=== PATIENT | male | born 1950 | race Caucasian/White ===

== ENCOUNTER → 2020-04-10 | Outpatient (CLI) | payer MEDICARE, BC ==
[2020-04-10 16:39] LABS: PLATELET COUNT, AUTOMATED 221 10^3/uL (150-450)
[2020-04-10 16:55] LABS: INR 0.99; PROTHROMBIN TIME 12.8 SECONDS (11.8-14.0)
[2020-04-10 16:56] LABS: PARTIAL THROMBOPLASTIN TIME 27.4 SECONDS (25.0-38.4)
== END ==
LOC: M WUC 11:09
PROVIDERS: ATTEND Physician Assistant
DX: Z01.812 Encounter for preprocedural laboratory examination (principal); M47.817 Spondylosis without myelopathy or radiculopathy, lumbosacral region

== ENCOUNTER → 2020-04-11 | Outpatient (CLI) | payer MEDICARE, BC | LOC: M LABSMTC 10:18 | PROVIDERS: ATTEND Physician Assistant | DX: Z03.818 Encounter for observation for suspected exposure to other biological agents ruled out (principal); Z11.59 Encounter for screening for other viral diseases ==

== ENCOUNTER → 2020-07-02 | Outpatient (CLI) | payer MEDICARE, BC ==
[~2020-07-02] MED LIST: AMBI5TAB PO; IBUP-1022 PO; LIDO4CRE4 EX; LISI-538 PO; MAGN400T2 PO; OMEP-218 PO; PERC5TAB12 PO; VALA1TAB5 PO; XARE10TA PO
== END ==
LOC: M LABSMTC 10:10
PROVIDERS: ATTEND Anesthesiology
DX: Z03.818 Encounter for observation for suspected exposure to other biological agents ruled out (principal); Z11.59 Encounter for screening for other viral diseases
CPT/HCPCS: C9803; U0003

== ENCOUNTER 2020-07-07 09:54 | Inpatient (IN) | payer MEDICARE, BC ==
[~2020-07-07] VITALS: Ht 167.6 cm; Wt 73.9 kg
[~2020-07-07 09:54] MED LIST changes: +BUPIVACAINE HCL 0.25% 10ML VIAL As Ordered ONE; +BUPIVACAINE LIPOSOME/PF 1.3% 20ML VIAL (13.3MG/ML)(EXPAREL)(C9290 PER1MG) As Ordered ONE; +EPINEPHrine INJ 1 MG/ML 1ML AMP As Ordered ONE; -PERC5TAB12 PO; +TRANEXAMIC ACID 100 MG/ML 10ML VIAL As Ordered ONE; -XARE10TA PO; +ceFAZolin 1GM VIAL (J0690 PER 500MG) As Ordered ONE; +lisinopriL 20 MG TAB PO SCH
[2020-07-07] MEDS ORDERED: ceFAZolin 2 GM/D5W 50 ML IV BAG (J0690 PER 500MG) As Ordered ONE (10:50)
[2020-07-07] MEDS ORDERED: ACETAMINOPHEN 500 MG TAB As Ordered ONE (10:50)
[2020-07-07] MEDS ORDERED: ceFAZolin SOD 2 GM in IV 1 EA IV ONE (11:15)
[2020-07-07] MEDS ORDERED: ACETAMINOPHEN 500 MG TAB PO ONE (11:15)
[2020-07-07] MEDS ORDERED: LR 1,000 ML IV ONE (11:15)
[2020-07-07] MEDS ORDERED: fentaNYL 100 MCG/2 ML INJECTION (J3010) As Ordered ONE ×2 (11:37→13:03)
[2020-07-07] MEDS ORDERED: MIDAZOLAM INJ 2MG/2ML VIAL (J2250 PER 1MG) As Ordered ONE ×2 (11:37→13:03)
[2020-07-07 11:44] LABS: INR 0.94; PROTHROMBIN TIME 12.8 SECONDS (11.8-14.0)
[2020-07-07] MEDS: fentaNYL 100 MCG/2 ML INJECTION (J3010) IV SCH ×2 (11:59→12:05)
[2020-07-07] MEDS: MIDAZOLAM INJ 2MG/2ML VIAL (J2250 PER 1MG) IV SCH ×2 (11:59→12:02)
[2020-07-07] MEDS ORDERED: ePHEDrine SULFATE 25 MG/5 ML(5MG/ML) SYRINGE As Ordered ONE (13:03)
[2020-07-07] MEDS ORDERED: propofoL 500 MG/50 ML VIAL As Ordered ONE (13:03)
[2020-07-07] MEDS ORDERED: propofoL 200 MG/20 ML VIAL As Ordered ONE (13:11)
[2020-07-07] MEDS ORDERED: ONDANSETRON 4MG/2ML VIAL As Ordered ONE (14:07)
[2020-07-07] MEDS ORDERED: LR 1,000 ML IV SCH ×2 (14:45→15:45)
[2020-07-07] MEDS ORDERED: fentaNYL 100 MCG/2 ML INJECTION (J3010) IV PRN (14:45)
[2020-07-07] MEDS ORDERED: ONDANSETRON 4MG/2ML VIAL IV PRN ×2 (14:45→15:45)
[2020-07-07] MEDS ORDERED: METOCLOPRAMIDE INJ 10MG/2ML VIAL (J2765 PER 1) IV PRN (14:45)
[2020-07-07] MEDS ORDERED: MEPERIDINE INJ 25 MG/ML VIAL (J2175) IV PRN (14:45)
[2020-07-07] MEDS ORDERED: ACETAMINOPHEN TAB 650MG DOSE (2X325MG) PO PRN (15:45)
[2020-07-07] MEDS ORDERED: MORPHINE 2 MG/ML 1ML VIAL (J2270) IV PRN (15:45)
[2020-07-07] MEDS ORDERED: PERCOCET 5MG/325MG TAB PO PRN ×3 (15:45→23:45)
[2020-07-07] MEDS ORDERED: oxyCODONE 5MG TAB As Ordered ONE ×2 (16:05→16:36)
[2020-07-07] MEDS: oxyCODONE 5MG TAB PO PRN ×2 (16:10→16:40)
[2020-07-07 18:00] VITALS: BP 178/84
[2020-07-07 18:30] VITALS: BP 174/94
[2020-07-07] MEDS ORDERED: zolPIDEM TARTRATE 5 MG TAB PO PRN (18:45)
[2020-07-07] MEDS ORDERED: amLODIPine 5 MG TAB PO ONE (19:00)
[2020-07-07] MEDS: OMEPRAZOLE 20 MG CAP PO SCH (19:07)
--- NOTE | 2020-07-07 19:15 | CR.PDOC ---
General Date of Consultation: Jul 07, 2020 Consultation REASON FOR CONSULTATION/CHIEF COMPLAINT: Medical comanagement HISTORY OF PRESENT ILLNESS: This is a 70 year old male with PMH of Hypertension HLD, GERD, gout was admitted for elective left total knee replacement for advanced OA not responding to medical management. Hospitalist consulted for medical comanagement. Complaining of left knee aching throbbing pain about 6/10 in intensity, no radiation. ALLERGIES: Please see below. HOME MEDICATIONS: Please see below. PAST MEDICAL HISTORY: Hypertension HLD Gout GERD Hiatal hernia Liu's esophagus colonic polyps. OA PAST SURGICAL HISTORY: colonoscopies FAMILY HISTORY: Father: Colon cancer Siblings: Brother colon cancer SOCIAL HISTORY: Tobacco use: Negative ETOH: Occasionally Illicit drug use: none REVIEW OF SYSTEMS: 11 point review of system is negative except as mentioned in HPI. PHYSICAL EXAMINATION: VITAL SIGNS: Please see below. GENERAL APPEARANCE: awake, alert oriented x 3, laying in bed in no acute distress. HEENT: Nc/AT, MMM, Anicteric eyes. RESPIRATORY: Clear to auscultation CARDIOVASCULAR: S1, S2 regular no rub/ murmur/ gallop ABDOMEN: soft , nontender, bowel sounds positive EXTREMITIES: No edema NEUROLOGICAL: No focal neurodeficits LABORATORY DATA: Please see below. ASSESSMENT/PLAN: This is a 70 year old male with PMH of Hypertension HLD, GERD, gout was admitted for elective left total knee replacement for advanced OA not responding to medical management. Hospitalist consulted for medical comanagement. S/P Left total knee arthroplasty pain control and dvt prophylaxis as per ortho Hypertension will hold lisinopril today start from tomorrow with hold parameters. will give amlodipine if needed for BP control. Patient already got lisinopril before I could see the patient. If basic OK will restart lisinopril form tomorrow. HLD not on any meds. Gout allopurinol GERD/Hiatal Hernia/Baretts esophagus PPI Vital Signs/I&O Vital Signs Date Time Temp Pulse Resp B/P (MAP) Pulse Ox O2 Delivery O2 Flow Rate FiO2 07/07/20 12:15 65 16 130/61 (84) 96 Nasal Cannula 2 07/07/20 11:20 98 Laboratory Data Labs 24H Laboratory Tests 2 07/07/20 11:12: Erythrocyte Sedimentation Rate 13, Prothrombin Time 12.8, Prothromb Time International Ratio 0.94 Allergies Coded Allergies: Sulfa (Sulfonamide Antibiotics) (Verified Allergy, Intermediate, HIVES, 07/04/20) Home Medications Scheduled Lidocaine (Lidocaine) 15 Gm Cream..g., 5 % EX ASDIRECTED, (Reported) Lisinopril (Lisinopril) 20 Mg Tablet, 20 MG PO DAILY, (Reported) Magnesium Oxide (Magnesium Oxide) 400 Mg Tablet, 400 MG PO DAILY, (Reported) Omeprazole (Omeprazole) 20 Mg Capsule.dr, 20 MG PO DAILY, (Reported) Valacyclovir HCl (Valacyclovir) 1,000 Mg Tablet, 1 GM PO ASDIRECTED, (Reported) Zolpidem Tartrate (Ambien) 5 Mg Tablet, 5 MG PO QHS, (Reported) Scheduled PRN Ibuprofen (Ibuprofen) 600 Mg Tablet, 600 MG PO Q6H PRN for PAIN for 5 Days, #20 (Reported) IVONNE PRYOR MD Jul 07, 2020 13:50
[2020-07-07 19:30] VITALS: BP 147/60
[2020-07-07 20:30] VITALS: BP 170/80
[2020-07-07] MEDS: ceFAZolin SOD 2 GM in IV 1 EA IV SCH (20:45)
[2020-07-07] MEDS ORDERED: ASPIRIN 81 MG ENTERIC TAB PO SCH (21:00)
[2020-07-07 21:30] VITALS: BP 150/70
[2020-07-07 22:30] VITALS: BP 160/80
[2020-07-07] MEDS: PERCOCET 5MG/325MG TAB PO PRN (23:59)
[2020-07-08 04:30] VITALS: BP 140/65
[2020-07-08] MEDS: PERCOCET 5MG/325MG TAB PO PRN ×3 (04:35→13:30)
[2020-07-08] MEDS: ceFAZolin SOD 2 GM in IV 1 EA IV SCH ×2 (04:38→11:50)
[2020-07-08] MEDS ORDERED: XARE10TA PO (06:20)
[2020-07-08] MEDS ORDERED: PERC5TAB12 PO (06:20)
[2020-07-08 07:26] LABS: HEMATOCRIT 39.3 % (42.0-52.0); HEMOGLOBIN 13.1 g/dl (13.5-17.5); MEAN CORPUSCULAR HGB CONC 33.3 g/dl (32.0-36.5); MEAN CORPUSCULAR VOLUME 95.9 fl (80.0-96.0); PLATELET COUNT, AUTOMATED 224 10^3/uL (150-450); WHITE BLOOD COUNT 14.1 10^3/uL (4.0-10.0)
[2020-07-08 07:50] LABS: ALBUMIN 3.4 GM/DL (3.2-5.2); ALT/SGPT 27 U/L (12-78); BILIRUBIN,TOTAL 0.3 MG/DL (0.2-1.0); BLOOD UREA NITROGEN 12 MG/DL (7-18); CALCIUM LEVEL 8.8 MG/DL (8.8-10.2); CARBON DIOXIDE LEVEL 27 MEQ/L (21-32); CHLORIDE LEVEL 107 MEQ/L (98-107); CREATININE FOR GFR 0.91 MG/DL (0.70-1.30); GLOMERULAR FILTRATION RATE > 60.0 (>42); GLUCOSE, FASTING 167 MG/DL (70-100); POTASSIUM SERUM 4.2 MEQ/L (3.5-5.1); SODIUM LEVEL 140 MEQ/L (136-145)
[2020-07-08 08:45] VITALS: BP 142/78
[2020-07-08] MEDS: OMEPRAZOLE 20 MG CAP PO SCH (08:45)
[2020-07-08] MEDS ORDERED: lisinopriL 20 MG TAB PO SCH (09:00)
[2020-07-08] MEDS ORDERED: MIRALAX *UNIT DOSE* 17GM PACKET PO SCH (09:00)
[2020-07-08] MEDS ORDERED: MAGNESIUM OXIDE 400 MG TAB (MAG-OX) PO SCH (09:00)
[2020-07-08] MEDS ORDERED: MOM 30ML SUSPENSION UDC PO SCH (09:00)
[2020-07-08] MEDS ORDERED: EPINEPHrine INJ 1 MG/ML 1ML AMP ONE (11:06)
[2020-07-08] MEDS ORDERED: ROPIvacaine 0.5% 30ML INJECTION (J2795 PER 1MG) ONE (11:06)
[2020-07-08] MEDS ORDERED: dexameTHASONE 10MG/1ML VIAL PRES.FREE (J1100 PER 1MG) ONE (11:06)
--- NOTE | 2020-07-08 12:24 | IPNPDOC ---
Date Seen The patient was seen on 07/08/20. Progress Note SUBJECTIVE: Patient is doing well overnight, no acute events. Denies fevers, chills, n/v/d or chest pain. Hospitalist service following as consulted for BP management. OBJECTIVE PHYSICAL EXAMINATION: VITAL SIGNS: Please see below. GENERAL: NAD HEENT: PERRLA, EOMI CARDIOVASCULAR: RRR, normal S1, S2. RESPIRATORY: Lungs CTAB, no wheeze, no rales. Good inspiratory effort. ABDOMINAL: soft, non tender EXTREMITIES: L knee incision s/p replacement, clean, dry. ROM slightly limited by pain. Pulses 2+ BLE. No swelling. NEUROLOGICAL: no focal defecits noted PSYCHOLOGICAL: calm, pleasant DVT prophylaxis ordered?: Y ASSESSMENT AND PLAN: 70 yo M with a hx of HTN, HLD, GERD, Liu's Esophagus, Gout, admitted for elective L TKR for advanced OA, which was not responsive to medical management. Hospital service consulted for BP management. PROBLEMS: 1. S/p L total knee replacement: ortho service is meghan. Pain control and DVT ppx per ortho. Discussed with service [employer]PLOYMENT CONSULTANT. ASA 81 mg BID was DC by hospitalist service given hx of Liu's Esophagus and GERD. Recommendation to use alternate method of DVT ppx (non-NSAID) 2. HTN: BP 140/80. Normotensive for age group. Continue with lisinopril 20 mg daily on DC. Repeat BP at PCP follow up. 3. HLD: not taking any medication 4. Gout: c/w allopurinol 5. GERD/Liu's/Hiatal hernia: c/w PPI. Avoid NSAID. VS, I&O, 24H, Fishbone Vital Signs/I&O Vital Signs Date Time Temp Pulse Resp B/P (MAP) Pulse Ox O2 Delivery O2 Flow Rate FiO2 07/08/20 09:16 18 07/08/20 08:45 142/78 07/08/20 04:30 97.8 73 97 Room Air 07/07/20 16:40 2.0 I&O- Last 24 Hours up to 6 AM 07/08/20 06:00 Intake Total 1955 ml Output Total 470 ml Balance 1485 ml Laboratory Data 24H LABS Laboratory Tests 2 07/08/20 06:49: Nucleated Red Blood Cells % (auto) 0.0, Anion Gap 6L, Glomerular Filtration Rate > 60.0, Calcium Level 8.8, Total Bilirubin 0.3, Aspartate Amino Transf (AST/SGOT) 13, Alanine Aminotransferase (ALT/SGPT) 27, Alkaline Phosphatase 65, Total Protein 6.0L, Albumin 3.4, Albumin/Globulin Ratio 1.3 CBC/BMP Laboratory Tests 07/08/20 06:49 DAINA ADHIKARI MD Jul 08, 2020 12:24
[2020-07-08] MEDS ORDERED: amLODIPine 5 MG TAB PO SCH (21:00)
--- NOTE | 2020-07-30 10:36 | RO ---
DATE OF OPERATION: 07/07/2020 PREOPERATIVE DIAGNOSIS: Left knee varus tricompartmental degenerative arthritis. POSTOPERATIVE DIAGNOSIS: Left knee varus tricompartmental degenerative arthritis. PROCEDURE: Left total knee arthroplasty using a size 5 Attune cemented femoral component, cruciate retaining with a size 6 tibial tray and an 8 mm rotating platform polyethylene insert, and a 35 mm polyethylene button. All components were cemented. Prosthesis was made by [employer]. SURGEON: Brittany Elise MD NOTCHER: PEGGY Damico ANESTHESIA: Spinal with left femoral nerve block. COMPLICATIONS: None. ESTIMATED BLOOD LOSS: 20 mL. SPECIMENS: Joint surface. DESCRIPTION OF PROCEDURE: Antibiotics were given intravenously preoperatively. Successful left femoral nerve block and then a spinal anesthetic was induced. Then a tourniquet was placed to the left upper thigh and not inflated. Left lower extremity was carefully prepped and draped in the usual sterile fashion and after an appropriate timeout, the tourniquet was inflated, and then a longitudinal incision was made for an anteromedial arthrotomy approach to the knee. Bovie cautery was used to coagulate crossing vessels. Subperiosteal dissection around the proximal, medial, and tibial plateaus performed as well as for a proximal lateral tibial plateau. We then everted the patella and the knee flexed. ACL was debrided and then the drill was placed down the center of the femoral canal followed by the intramedullary erlin. The distal femoral cutting jig set at a 5 degree valgus cut and 9 mm resection level for a left knee. The block was pinned into position and then the distal femoral cuts performed. AP sizing jig measured for a size 6 initially. Three degrees of external rotation were dialed in and the pins placed followed by the 4-in-1 block. Then, the anteroposterior chamfer cuts were performed taking great care to protect the surrounding soft tissues. At this point, we placed the sulcus osteotomy jig for thesulcus osteotomy. It was pinned into position and the sulcus osteotomy performed. We then exposed the proximal tibia and we used the extramedullary alignment jig for the tibia attempting to estimate being parallel to the mechanical axis of the tibia. We referenced off the medial tibial condyle at 4 mm resection level. We made sure the appropriate slope was set and then pinned the block into position. Once we were satisfied with our position, the proximal tibial osteotomy was performed. We then placed a lamina bee farmer laterally and performed a completion medial meniscectomy debriding the posterolateral osteophytes. We then placed the lamina bee farmer medially and performed a completion medial meniscectomy debriding theposteromedial osteophytes. We then placed a spacer block. It appeared as if there was a slight mismatch between our flexion gap and extension gap; that is the flexion gap was a bit too tight symmetrically both medially and laterally using the 6 mm spacer block. I felt it best at this point to downsize to a size #5 femoral component. Thus, using the batwing and the 4-in-1 block for the #5, it was pinned into position and then we did our posterior cuts taking an additional 3 mm as well as the posterior chamfers. There was nothing for the anterior chamfers and just a trace anteriorly. Thus, at this point then we placed the spacer blocks and this time an 8 mm spacer fit very nicely in flexion with good stability as well as extension had good stability to varus/valgus stress testing. We then exposed the proximal tibia, sized for a #6 tray, which was pinned into position followed by the leatha. The trial femoral component was placed, brought the knee to extension, everted the patella, performed a patella osteotomy and sized for a 35 button. Lug holes were drilled, trial placed, and patellofemoral tracking was anatomic. We removed all the trial components and drilled the lug holes for the femur, and again it was noted that he had good stability to varus/valgus stress testing both in flexion and in extension. Exparel was placed in the subperiosteal tissues around the distal femur and the proximal tibia, and then Ms. Elvi Ryan mixed the cement on the back table as I prepared the bony surfaces for cementing with a copious amount of pulsatile lavage irrigant solution. She was also critical to the success of this difficult surgery by helping with appropriate soft tissue manipulation, helped with soft tissue retraction, helped to manipulate the leg if needed, helped to prepare the patient, helped to close the wound, helped to mix the cement amongst many other tasks to allow me to perform the operation smoothly, efficiency, and safely. After copiously irrigating again and drying all the bony surfaces, we cemented the tibial tray, removed excess cement, placed the polyethylene, and then cemented the femoral component, removed excess cement, brought the knee into extension, everted the patella, and then cemented the patellar button and removed excess cement; held it with a clamp with the knee in full extension until the cement hardened. And as we were awaiting this, we copiously pulsatile lavaged and irrigated out the knee joint once again, placed tranexamic acid, and then began closing the apex of the arthrotomy with two #1 PDS sutures, and then the medial parapatellar area was closed with a #1 PDS suture. Then, the capsule was closed with a running double-arm #1 STRATAFIX and then we released the tourniquet, irrigated again,closed the deep subdermal tissues with interrupted 2-0 PDS sutures and the skin was closed with alexis covered by an Optifoam and a dry sterile bulky dressing. He was then transferred to the recovery room in stable condition. There were no intraoperative complications. PARESH
--- NOTE | 2020-08-01 16:12 | REP ---
LEFT KNEE SERIES CLINICAL: Postoperative baseline. TECHNIQUE: Portable AP and cross-table lateral views of the left knee. FINDINGS: Patient is status post left knee replacement. Satisfactory appearance and positioning to the femoral and tibial components noted. Overlying postsurgical changes appreciated. IMPRESSION: Status post left knee replacement. MTDD
--- NOTE | 2020-09-08 11:10 | DS ---
DATE OF ADMISSION: 07/07/2020 DATE OF DISCHARGE: 07/08/2020 ATTENDING PHYSICIAN: Dr. Elise ADMITTING DIAGNOSIS: Left knee degenerative arthritis. OTHER DIAGNOSES: 1. Hypertension. 2. Hyperlipidemia. 3. Gout. 4. Gastroesophageal reflux disease. 5. Liu's esophagus. 6. Hiatal hernia. 7. Chronic polyps. 8. Osteoarthritis. DISCHARGE DIAGNOSIS: Left knee degenerative arthritis, status post left total knee arthroplasty. HISTORY: Patient is a 70-year-old male who had progressively worsening right hip pain and stiffness. He failed to improve with conservative measures. He continued to have symptoms with weightbearing activities and activities of daily living. He consented for an elective right total hip arthroplasty with Dr. Elise for his continued symptoms. OPERATION PERFORMED: Left total knee arthroplasty. HOSPITAL COURSE: The patient underwent a left total knee arthroplasty under spinal anesthesia with femoral nerve block. Surgery was uneventful, and his hospital course was without complication. Patient was up with physical therapy per their protocol, weightbearing as tolerated on the left lower extremity. Patient was discharged on oral pain medications and will resume his preoperative medications and diet. He will use his thromboembolic deterrent stockings and take his anticoagulant postoperatively to prevent deep venous thrombosis. Patient will followup in our office in 12-14 days for a wound check and staple removal. He is encouraged to contact our office sooner if there is any increase in pain, redness, drainage, numbness or tingling in the extremity, fever greater than 101 degrees, or any other concerns. Please see medical records for additional details. PARESH
== END 2020-07-08 15:10 | disposition home health service (06) | DRG 470 ==
LOC: M OR 09:54 → M MS5PR 17:45
PROVIDERS: ADMIT Orthopaedic Surgery; ATTEND Orthopaedic Surgery
PROC: 0SRD0J9 Replacement of Left Knee Joint with Synthetic Substitute, Cemented, Open Approach (ICD-10-PCS; principal; 2020-07-07 12:15)
DX: M17.12 Unilateral primary osteoarthritis, left knee (principal); I10 Essential (primary) hypertension; M10.9 Gout, unspecified; K21.9 Gastro-esophageal reflux disease without esophagitis; K44.9 Diaphragmatic hernia without obstruction or gangrene; K22.70 Barrett's esophagus without dysplasia; Z79.899 Other long term (current) drug therapy

== ENCOUNTER → 2020-08-06 | Outpatient (CLI) | payer MEDICARE, BC ==
[~2020-08-06] MED LIST changes: -BUPIVACAINE HCL 0.25% 10ML VIAL As Ordered ONE; -BUPIVACAINE LIPOSOME/PF 1.3% 20ML VIAL (13.3MG/ML)(EXPAREL)(C9290 PER1MG) As Ordered ONE; -EPINEPHrine INJ 1 MG/ML 1ML AMP As Ordered ONE; +PERC5TAB12 PO; -TRANEXAMIC ACID 100 MG/ML 10ML VIAL As Ordered ONE; +XARE10TA PO; -ceFAZolin 1GM VIAL (J0690 PER 500MG) As Ordered ONE; -lisinopriL 20 MG TAB PO SCH
== END ==
LOC: M LABSMTC 12:59
PROVIDERS: ATTEND Orthopaedic Surgery
DX: Z20.828 Contact with and (suspected) exposure to other viral communicable diseases (principal)

== ENCOUNTER → 2020-08-15 | Outpatient (CLI) | payer MEDICARE, BC ==
[2020-08-15 16:16] LABS: PLATELET COUNT, AUTOMATED 381 10^3/uL (150-450)
[2020-08-15 16:29] LABS: INR 0.92; PROTHROMBIN TIME 12.6 SECONDS (12.5-14.3)
[2020-08-15 16:30] LABS: PARTIAL THROMBOPLASTIN TIME 25.4 SECONDS (24.2-38.5)
== END ==
LOC: M WUC 14:38
PROVIDERS: ATTEND Physical Medicine & Rehabilitation
DX: M47.817 Spondylosis without myelopathy or radiculopathy, lumbosacral region (principal)

== ENCOUNTER → 2020-09-03 | Outpatient (CLI) | payer MEDICARE, BC | LOC: M LABSMTC 09:37 | PROVIDERS: ATTEND Physical Medicine & Rehabilitation | DX: Z01.818 Encounter for other preprocedural examination (principal); Z20.828 Contact with and (suspected) exposure to other viral communicable diseases ==

== ENCOUNTER → 2020-10-09 | Outpatient (CLI) | payer MEDICARE, BC ==
[2020-10-09 20:16] LABS: AMPHETAMINES URINE REFLEX NEGATIVE (NEGATIVE); BARBITURATES URINE REFLEX NEGATIVE (NEGATIVE); BENZODIAZEPINES URINE REFLEX NEGATIVE (NEGATIVE); CANNABINOIDS URINE REFLEX NEGATIVE (NEGATIVE); COCAINE METABOLITE URINE REFLE NEGATIVE (NEGATIVE); METHADONE URINE REFLEX NEGATIVE (NEGATIVE); OPIATES URINE REFLEX NEGATIVE (NEGATIVE); PHENCYCLIDINE URINE REFLEX NEGATIVE (NEGATIVE)
== END ==
LOC: M WUC 15:08
PROVIDERS: ATTEND Physical Medicine & Rehabilitation
DX: M48.061 Spinal stenosis, lumbar region without neurogenic claudication (principal); Z79.899 Other long term (current) drug therapy

== ENCOUNTER → 2021-10-03 | Outpatient (CLI) | payer MEDICARE, BC ==
[~2021-10-03] MED LIST changes: +ALLO10TA PO; +COQ-100C5 PO; +FERR325T19 PO; -LISI-538 PO; +LISI20TA33 PO
== END ==
LOC: M LABSMTC 09:58
PROVIDERS: ATTEND Anesthesiology
DX: Z11.52 Encounter for screening for COVID-19 (principal); Z20.828 Contact with and (suspected) exposure to other viral communicable diseases

== ENCOUNTER 2021-10-07 09:15 | Day surgery (SDC) | payer MEDICARE, BC ==
[~2021-10-07] VITALS: Ht 167.6 cm; Wt 71.1 kg
[~2021-10-07 09:15] MED LIST changes: +LIDOCAINE 2% 100MG/5ML SDV (FOR ANES.) As Ordered ONE; +NS 1,000 ML IV ONE; +OMEP-173 PO; -OMEP-218 PO; +fentaNYL 100 MCG/2 ML INJECTION As Ordered ONE; +propofoL 500 MG/50 ML VIAL As Ordered ONE
== END 2021-10-07 11:32 | disposition home or self-care (01) ==
LOC: M OPP 09:15
PROVIDERS: ATTEND Internal Medicine Gastroenterology
DX: Z12.11 Encounter for screening for malignant neoplasm of colon (principal); Z80.0 Family history of malignant neoplasm of digestive organs; K63.5 Polyp of colon; K64.0 First degree hemorrhoids; K57.30 Diverticulosis of large intestine without perforation or abscess without bleeding; K55.20 Angiodysplasia of colon without hemorrhage; D50.9 Iron deficiency anemia, unspecified; K22.89 Other specified disease of esophagus; K44.9 Diaphragmatic hernia without obstruction or gangrene; K31.7 Polyp of stomach and duodenum; R12 Heartburn; Z79.899 Other long term (current) drug therapy; Z88.2 Allergy status to sulfonamides
CPT/HCPCS: 43239; 45380; 88305; J3010

== ENCOUNTER 2023-06-07 09:27 | Day surgery (SDC) | payer BC, MEDICARE, OTHER ==
[~2023-06-07] VITALS: Ht 167.6 cm; Wt 69.8 kg
[~2023-06-07 09:27] MED LIST changes: +ACETYLCHOLINE OPHTH SOLN 1% 2ML (MIOCHOL-E) As Ordered ONE; +ALLO300T2 PO; +BSS IRR 500ML/OMIDRIA 4ML IRR BAG (OR ONLY) As Ordered ONE; +CEFUROXIME 1MG/0.1ML INTRACAMERAL INJ As Ordered ONE; +CO-E200C PO; +COQ150CH PO; +CYCLOPENTOLATE 1% OPHTH SOLN 2ML BTL OD SCH; +DRIS50003 PO; +FLUT50SP17; +LIDO5OIN19 EX; +LIDOCAINE 1% SDV 5ML VIAL As Ordered ONE; -LIDOCAINE 2% 100MG/5ML SDV (FOR ANES.) As Ordered ONE; -NS 1,000 ML IV ONE; +OFLOXACIN 0.3 % (OCUFLOX) OPTH SOL 5ML OD SCH; +OMEP40CA4 PO; +PHENYLEPHRINE 2.5% OPHTH SOL 2ML OD SCH; +PROPARACAINE 0.5% OPHTH SOL 15ML OD ONE; +TRAM50TA2 PO; +TROPICAMIDE 1% OPHTH SOLN 15ML OD SCH; +ZOLP10TA2 PO; -fentaNYL 100 MCG/2 ML INJECTION As Ordered ONE; -propofoL 500 MG/50 ML VIAL As Ordered ONE
[2023-06-07] MEDS ORDERED: fentaNYL 100 MCG/2 ML INJECTION As Ordered ONE (10:09)
[2023-06-07] MEDS ORDERED: MIDAZOLAM INJ 2MG/2ML VIAL As Ordered ONE (10:10)
[2023-06-07 11:44] VITALS: BP 154/73; TEMP 97.4; O2SAT 97
== END 2023-06-07 12:19 | disposition home or self-care (01) ==
LOC: M SDC 09:27
PROVIDERS: ATTEND Ophthalmology
DX: H25.11 Age-related nuclear cataract, right eye (principal); I10 Essential (primary) hypertension; L43.9 Lichen planus, unspecified; M10.9 Gout, unspecified; K21.9 Gastro-esophageal reflux disease without esophagitis; D64.9 Anemia, unspecified; Z79.899 Other long term (current) drug therapy; Z87.891 Personal history of nicotine dependence
CPT/HCPCS: 66984; J0697; J1097; J2250; J3010; V2632